=== PATIENT | female | born 1960 | race Caucasian/White ===

== ENCOUNTER 2016-11-11 10:21 | Emergency (ER) | payer SELFPAY ==
[~2016-11-11] VITALS: Ht 157.5 cm; Wt 111.2 kg
[~2016-11-11 10:21] MED LIST: CARI250T; CARI350T PO; DIAZ10TA; ENAL20TA; ENAL20TA PO; HYDR-3307; HYDR1POW19; HYDR25TA6 PO; OXYC-229; PENI500T; PRED20TA PO
[2016-11-11] MEDS ORDERED: ONDANSETRON 2MG/ML, 2ML IVPush ONE (11:30)
[2016-11-11] MEDS ORDERED: SODIUM CHLORIDE FLUSH 10ML SYR IVF ONE (11:30)
[2016-11-11] MEDS ORDERED: HYDROmorphone 1 MG/ML, 1ML IVPush PRN (11:30)
[2016-11-11 12:02] LABS: HEMOGLOBIN 15.8 g/dL (11.7-16.4)
[2016-11-11] MEDS ORDERED: ONDANSETRON 2MG/ML, 2ML ONE (12:03)
[2016-11-11] MEDS ORDERED: HYDROmorphone 1 MG/ML, 1ML ONE (12:03)
[2016-11-11 12:10] LABS: ASPARTATE AMINO TRANSFERASE 12 U/L (15-37); BLOOD UREA NITROGEN 14 mg/dL (7-18)
[2016-11-11 12:20] LABS: IS PT STATUS REG ER OR PRE ER? YES
[2016-11-11] MEDS ORDERED: HYDR25TA6 PO (12:47)
[2016-11-11] MEDS ORDERED: OMNIPAQUE 350 MG/ML, 100ML BOTTLE ONE (12:57)
[2016-11-11 13:55] VITALS: BP 137/60
== END 2016-11-11 13:57 | disposition home or self-care (01) ==
LOC: ED 12:57
DX: R10.12 Left upper quadrant pain (principal); R10.32 Left lower quadrant pain; M54.5 Low back pain; I10 Essential (primary) hypertension; J44.9 Chronic obstructive pulmonary disease, unspecified; Z90.49 Acquired absence of other specified parts of digestive tract; Z88.1 Allergy status to other antibiotic agents
CPT/HCPCS: 36415; 74022; 74177; 80053; 81003; 82550; 83605; 83690; 84484; 85025; 93005; 96374; 96375; 99285; J1170; J2405; Q9967

== ENCOUNTER 2017-01-14 11:00 | Emergency (ER) | payer SELFPAY ==
[~2017-01-14] VITALS: Ht 157.5 cm; Wt 110.0 kg
[2017-01-14] MEDS ORDERED: NEBI10TA3 PO (12:08)
[2017-01-14] MEDS ORDERED: SODIUM CHLORIDE FLUSH 10ML SYR IVF ONE (12:30)
[2017-01-14 13:44] LABS: BLOOD UREA NITROGEN 13 mg/dL (7-18)
[2017-01-14 14:05] VITALS: BP 144/86
== END 2017-01-14 14:43 | disposition home or self-care (01) ==
LOC: ED 14:10
DX: M25.461 Effusion, right knee (principal); R60.0 Localized edema; I10 Essential (primary) hypertension
CPT/HCPCS: 36415; 71010; 80048; 82040; 83880; 85025; 93005; 93970; 99285

== ENCOUNTER 2017-01-20 12:13 | Inpatient (IN) | payer SELFPAY ==
[~2017-01-20] VITALS: Ht 167.6 cm; Wt 110.4 kg
[~2017-01-20 12:13] MED LIST changes: -HYDR-3307; +HYDR-3307 PO; +NEBI10TA3 PO
[2017-01-20] MEDS ORDERED: SODIUM CHLORIDE FLUSH 10ML SYR IVF ONE (13:00)
[2017-01-20] MEDS ORDERED: FUROSEMIDE 40 MG/4 ML IV ONE (13:00)
[2017-01-20] MEDS ORDERED: FUROSEMIDE 40 MG/4 ML ONE (13:03)
[2017-01-20] MEDS ORDERED: ALBUTEROL/IPRATROPIUM 2.5MG/0.5MG, 3 ML ONE ×2 (13:21→13:41)
[2017-01-20 13:34] LABS: BLOOD UREA NITROGEN 11 mg/dL (7-18)
[2017-01-20 13:39] LABS: ASPARTATE AMINO TRANSFERASE 22 U/L (15-37); IS PT STATUS REG ER OR PRE ER? YES
[2017-01-20] MEDS: ALBUTEROL/IPRATROPIUM 2.5MG/0.5MG, 3 ML NPPB SCH ×2 (13:53→13:54)
[2017-01-20] MEDS: methylPREDNISolone SOD SUCC 125 MG/2 ML IVPush SCH ×2 (15:30→21:49)
[2017-01-20] MEDS ORDERED: ACETAMINOPHEN 325 MG TABLET PO PRN (15:30)
[2017-01-20] MEDS ORDERED: ENALAPRILAT 1.25 MG/ML, 2ML IVPush PRN (15:30)
[2017-01-20] MEDS ORDERED: ONDANSETRON 2MG/ML, 2ML ONE (15:51)
[2017-01-20] MEDS ORDERED: MORPHINE SULFATE 4 MG/ML, 1ML ONE (15:51)
[2017-01-20] MEDS: morphine SULFATE 10 MG/ML, 1ML IVPush PRN ×2 (15:53→21:59)
[2017-01-20] MEDS: ONDANSETRON 2MG/ML, 2ML IVPush PRN ×2 (15:54→22:13)
[2017-01-20] MEDS: CEFTRIAXONE 2 GM in SODIUM CHLORIDE 0.9% 50 ML IV SCH (16:00)
[2017-01-20] MEDS ORDERED: CEFTRIAXONE PMX 2GM/50ML 50 ML ONE (16:01)
[2017-01-20] MEDS ORDERED: HYDROcodone/APAP 5/325 TABLET ONE (17:00)
[2017-01-20] MEDS: CARISOPRODOL 350 MG TABLET PO SCH ×2 (17:00→22:32)
[2017-01-20] MEDS: HYDROcodone/APAP 5/325 TABLET PO PRN (17:15)
[2017-01-20] MEDS ORDERED: ALBUTEROL SULFATE 2.5 MG/3 ML NPPB PRN (17:30)
[2017-01-20 20:00] VITALS: BP 124/76
[2017-01-20] MEDS: ALBUTEROL SULFATE 2.5 MG/3 ML NPPB SCH (20:00)
[2017-01-20] MEDS: NICOTINE 21 MG/24 HR PATCH.TD24 TD SCH (21:40)
[2017-01-20] MEDS: ENOXAPARIN 40 MG/0.4 ML SQ SCH (21:49)
[2017-01-20] MEDS: TEMAZEPAM 15 MG CAPSULE PO PRN (21:59)
[2017-01-21] MEDS: HYDROcodone/APAP 5/325 TABLET PO PRN ×5 (01:10→21:33)
[2017-01-21] MEDS: TEMAZEPAM 15 MG CAPSULE PO PRN (01:10)
[2017-01-21 02:00] VITALS: BP 129/85
[2017-01-21] MEDS: methylPREDNISolone SOD SUCC 125 MG/2 ML IVPush SCH ×5 (03:53→21:16)
[2017-01-21 06:51] VITALS: BP 130/81
[2017-01-21] MEDS: ALBUTEROL SULFATE 2.5 MG/3 ML NPPB SCH ×4 (07:10→19:43)
[2017-01-21] MEDS: CARISOPRODOL 350 MG TABLET PO SCH ×3 (09:13→21:16)
[2017-01-21] MEDS: AZITHROMYCIN 500 MG TABLET PO SCH (09:13)
[2017-01-21] MEDS: morphine SULFATE 10 MG/ML, 1ML IVPush PRN ×4 (09:17→23:08)
[2017-01-21] MEDS: ONDANSETRON 2MG/ML, 2ML IVPush PRN ×2 (10:03→20:05)
[2017-01-21] MEDS ORDERED: DIAZEPAM 5 MG TABLET PO PRN ×2 (11:30→19:30)
[2017-01-21] MEDS ORDERED: DIAZEPAM 10 MG TABLET ONE (11:33)
[2017-01-21 13:50] VITALS: BP 146/75
[2017-01-21] MEDS: ENOXAPARIN 40 MG/0.4 ML SQ SCH (16:18)
[2017-01-21] MEDS: NICOTINE 21 MG/24 HR PATCH.TD24 TD SCH (16:18)
[2017-01-21] MEDS: CEFTRIAXONE 2 GM in SODIUM CHLORIDE 0.9% 50 ML IV SCH (16:18)
[2017-01-21 20:00] VITALS: BP 160/81
[2017-01-22 02:00] VITALS: BP 144/85
[2017-01-22] MEDS: methylPREDNISolone SOD SUCC 125 MG/2 ML IVPush SCH ×2 (03:32→10:41)
[2017-01-22] MEDS: morphine SULFATE 10 MG/ML, 1ML IVPush PRN (03:33)
[2017-01-22] MEDS: ONDANSETRON 2MG/ML, 2ML IVPush PRN (03:39)
[2017-01-22 06:01] LABS: BLOOD UREA NITROGEN 16 mg/dL (7-18)
[2017-01-22 06:42] VITALS: BP 147/75
[2017-01-22] MEDS: CARISOPRODOL 350 MG TABLET PO SCH (08:13)
[2017-01-22] MEDS: HYDROcodone/APAP 5/325 TABLET PO PRN (08:13)
[2017-01-22] MEDS: AZITHROMYCIN 500 MG TABLET PO SCH (08:13)
[2017-01-22] MEDS ORDERED: POTASSIUM CHLORIDE 20 MEQ TAB.ER.PRT PO SCH (09:00)
[2017-01-22] MEDS ORDERED: FUROSEMIDE 40 MG/4 ML IV SCH (09:00)
[2017-01-22] MEDS ORDERED: LISINOPRIL 20 MG TABLET PO SCH (10:00)
[2017-01-22] MEDS ORDERED: LISI-170 PO (23:24)
[2017-01-22] MEDS ORDERED: PRED20TA PO (23:24)
[2017-01-22] MEDS ORDERED: FURO-93 PO (23:24)
== END 2017-01-22 11:03 | disposition left against medical advice (07) | DRG 291 ==
LOC: ED 13:43 → SUATTDRO 14:42 → EDIP 15:38 → 4EST 18:21
PROVIDERS: ADMIT Hospitalist; ATTEND Hospitalist
DX: I11.0 Hypertensive heart disease with heart failure (principal); J96.00 Acute respiratory failure, unspecified whether with hypoxia or hypercapnia; J44.1 Chronic obstructive pulmonary disease with (acute) exacerbation; I25.2 Old myocardial infarction; Z86.73 Personal history of transient ischemic attack (TIA), and cerebral infarction without residual deficits; M06.9 Rheumatoid arthritis, unspecified; M79.7 Fibromyalgia; Z90.49 Acquired absence of other specified parts of digestive tract; F17.200 Nicotine dependence, unspecified, uncomplicated; I25.10 Atherosclerotic heart disease of native coronary artery without angina pectoris; M19.90 Unspecified osteoarthritis, unspecified site; M32.9 Systemic lupus erythematosus, unspecified; M71.20 Synovial cyst of popliteal space [Baker], unspecified knee; Z88.8 Allergy status to other drugs, medicaments and biological substances; Z80.9 Family history of malignant neoplasm, unspecified; Z82.49 Family history of ischemic heart disease and other diseases of the circulatory system; I50.31 Acute diastolic (congestive) heart failure
CPT/HCPCS: 36415; 71010; 80048; 80053; 80061; 83605; 83880; 84443; 84484; 85025; 93005; 93306; 94640; 96374; J0696; J1650; J1940; J2405; J7613; J7620; J2270; J2930; J7512

== ENCOUNTER 2017-01-22 21:26 | Inpatient (IN) | payer SELFPAY ==
[~2017-01-22] VITALS: Ht 157.5 cm; Wt 109.1 kg
[2017-01-22] MEDS ORDERED: methylPREDNISolone SOD SUCC 125 MG/2 ML IVP ONE (22:30)
[2017-01-22] MEDS ORDERED: SODIUM CHLORIDE FLUSH 10ML SYR IVF ONE (22:30)
[2017-01-22] MEDS ORDERED: methylPREDNISolone SOD SUCC 125 MG/2 ML ONE (22:35)
[2017-01-22 22:51] LABS: BLOOD UREA NITROGEN 27 mg/dL (7-18)
[2017-01-22 22:55] LABS: IS PT STATUS REG ER OR PRE ER? YES
[2017-01-22] MEDS ORDERED: KETOROLAC 30 MG/1 ML ONE (23:17)
[2017-01-22] MEDS ORDERED: PRED20TA PO (23:24)
[2017-01-22] MEDS ORDERED: FURO-93 PO (23:24)
[2017-01-22] MEDS ORDERED: LISI-170 PO (23:24)
[2017-01-22] MEDS ORDERED: KETOROLAC 30 MG/1 ML IVPush ONE (23:30)
[2017-01-23] MEDS: NICOTINE 14MG/24 HR PATCH.TD24 TD SCH
[2017-01-23] MEDS ORDERED: POLYETHYLENE GLYCOL 17 GM PACKET PO PRN
[2017-01-23] MEDS ORDERED: DOCUSATE 100 MG CAPSULE PO PRN
[2017-01-23] MEDS ORDERED: BISACODYL 10 MG SUPP PR PRN
[2017-01-23] MEDS ORDERED: ACETAMINOPHEN 325 MG TABLET PO PRN
[2017-01-23] MEDS ORDERED: ALBUTEROL SULFATE 2.5 MG/3 ML ONE (00:21)
[2017-01-23] MEDS ORDERED: ALBUTEROL/IPRATROPIUM 2.5MG/0.5MG, 3 ML NPPB PRN ×2 (00:30→01:30)
[2017-01-23 01:00] VITALS: BP 127/80
[2017-01-23] MEDS: methylPREDNISolone SOD SUCC 125 MG/2 ML IVPush SCH ×4 (01:19→20:02)
[2017-01-23] MEDS: ENOXAPARIN 40 MG/0.4 ML SQ SCH (01:19)
[2017-01-23] MEDS: morphine SULFATE 10 MG/ML, 1ML IVPush PRN ×6 (01:19→23:08)
[2017-01-23] MEDS: DOXYCYCLINE 100 MG in DEXTROSE 5% 250 ML IV SCH ×2 (01:20→12:19)
[2017-01-23] MEDS: CARISOPRODOL 350 MG TABLET PO SCH ×4 (01:20→20:02)
[2017-01-23] MEDS: ONDANSETRON 2MG/ML, 2ML IVPush PRN ×2 (01:27→20:02)
[2017-01-23 02:14] VITALS: BP 127/80
[2017-01-23 03:02] VITALS: BP 127/80
[2017-01-23] MEDS: HYDROcodone/APAP 10/325 MG TABLET PO PRN ×4 (05:54→22:05)
[2017-01-23 06:10] LABS: ASPARTATE AMINO TRANSFERASE 20 U/L (15-37); BLOOD UREA NITROGEN 32 mg/dL (7-18)
[2017-01-23 06:14] LABS: IS PT STATUS REG ER OR PRE ER? NO
[2017-01-23 07:43] VITALS: BP 134/83
[2017-01-23] MEDS: ALBUTEROL/IPRATROPIUM 2.5MG/0.5MG, 3 ML NPPB SCH ×8 (07:45→20:00)
[2017-01-23] MEDS: FUROSEMIDE 20 MG/2 ML IV SCH ×2 (08:15→16:36)
[2017-01-23] MEDS: SENNA/DOCUSATE TABLET PO SCH ×2 (08:16→08:17)
[2017-01-23] MEDS: LISINOPRIL 20 MG TABLET PO SCH (08:16)
[2017-01-23 12:42] LABS: IS PT STATUS REG ER OR PRE ER? NO
[2017-01-23 14:36] VITALS: BP 122/79
[2017-01-23 16:27] LABS: IS PT STATUS REG ER OR PRE ER? NO
[2017-01-23 19:19] VITALS: BP 133/80
[2017-01-24] MEDS: NICOTINE 14MG/24 HR PATCH.TD24 TD SCH
[2017-01-24] MEDS: ENOXAPARIN 40 MG/0.4 ML SQ SCH (00:18)
[2017-01-24 01:27] VITALS: BP 125/74
[2017-01-24] MEDS: methylPREDNISolone SOD SUCC 125 MG/2 ML IVPush SCH ×2 (02:10→08:46)
[2017-01-24] MEDS: ONDANSETRON 2MG/ML, 2ML IVPush PRN ×2 (02:10→10:59)
[2017-01-24] MEDS: morphine SULFATE 10 MG/ML, 1ML IVPush PRN ×3 (02:10→10:05)
[2017-01-24] MEDS: DOXYCYCLINE 100 MG in DEXTROSE 5% 250 ML IV SCH (02:10)
[2017-01-24] MEDS: HYDROcodone/APAP 10/325 MG TABLET PO PRN ×2 (02:49→07:34)
[2017-01-24] MEDS: ALBUTEROL/IPRATROPIUM 2.5MG/0.5MG, 3 ML NPPB SCH (07:00)
[2017-01-24 07:15] VITALS: BP 147/86
[2017-01-24] MEDS: FUROSEMIDE 20 MG/2 ML IV SCH (08:46)
[2017-01-24] MEDS: CARISOPRODOL 350 MG TABLET PO SCH (08:46)
[2017-01-24] MEDS: LISINOPRIL 20 MG TABLET PO SCH (08:46)
[2017-01-24] MEDS: SENNA/DOCUSATE TABLET PO SCH (09:00)
[2017-01-24] MEDS ORDERED: DIAZEPAM 5 MG TABLET PO PRN (10:30)
== END 2017-01-24 12:00 | disposition left against medical advice (07) | DRG 291 ==
LOC: ED 21:52 → EDIP 23:25 → SUATTDRO 23:30 → 4EST 01-23 00:38
PROVIDERS: ADMIT Internal Medicine; ATTEND Internal Medicine
DX: I11.0 Hypertensive heart disease with heart failure (principal); J96.00 Acute respiratory failure, unspecified whether with hypoxia or hypercapnia; J44.1 Chronic obstructive pulmonary disease with (acute) exacerbation; J44.0 Chronic obstructive pulmonary disease with (acute) lower respiratory infection; Z68.41 Body mass index [BMI] 40.0-44.9, adult; I50.33 Acute on chronic diastolic (congestive) heart failure; E66.01 Morbid (severe) obesity due to excess calories; F41.9 Anxiety disorder, unspecified; I25.10 Atherosclerotic heart disease of native coronary artery without angina pectoris; I27.2 Other secondary pulmonary hypertension; J20.9 Acute bronchitis, unspecified; M06.9 Rheumatoid arthritis, unspecified; M32.9 Systemic lupus erythematosus, unspecified; M79.7 Fibromyalgia; F17.210 Nicotine dependence, cigarettes, uncomplicated; I34.0 Nonrheumatic mitral (valve) insufficiency; I07.1 Rheumatic tricuspid insufficiency; M71.20 Synovial cyst of popliteal space [Baker], unspecified knee; M25.461 Effusion, right knee; Z53.21 Procedure and treatment not carried out due to patient leaving prior to being seen by health care provider; Z86.73 Personal history of transient ischemic attack (TIA), and cerebral infarction without residual deficits; Z90.49 Acquired absence of other specified parts of digestive tract; Z90.89 Acquired absence of other organs; Z82.49 Family history of ischemic heart disease and other diseases of the circulatory system; Z80.9 Family history of malignant neoplasm, unspecified; Z90.721 Acquired absence of ovaries, unilateral; Z79.52 Long term (current) use of systemic steroids; Z79.899 Other long term (current) drug therapy; Z88.1 Allergy status to other antibiotic agents; Z88.8 Allergy status to other drugs, medicaments and biological substances
CPT/HCPCS: 36415; 71010; 80048; 80053; 82040; 83880; 84484; 85025; 93005; 94640; 96374; 96375; J1650; J1885; J2405; J7060; J7620; J1940; J2270; J2930

== ENCOUNTER 2017-01-26 15:25 | Inpatient (IN) | payer SELFPAY ==
[~2017-01-26] VITALS: Ht 157.5 cm; Wt 108.5 kg
[~2017-01-26 15:25] MED LIST changes: +FURO-93 PO; +LISI-170 PO
[2017-01-26] MEDS ORDERED: SODIUM CHLORIDE FLUSH 10ML SYR IVF ONE (15:30)
[2017-01-26] MEDS ORDERED: ALBUTEROL/IPRATROPIUM 2.5MG/0.5MG, 3 ML NPPB ONE (16:00)
[2017-01-26] MEDS ORDERED: ALBUTEROL/IPRATROPIUM 2.5MG/0.5MG, 3 ML ONE (16:14)
[2017-01-26 16:18] LABS: BLOOD UREA NITROGEN 22 mg/dL (7-18)
[2017-01-26] MEDS ORDERED: SODIUM CHLORIDE FLUSH 10ML SYR IVF PRN (17:30)
[2017-01-26] MEDS ORDERED: ACETAMINOPHEN 325 MG TABLET PO PRN (19:00)
[2017-01-26] MEDS ORDERED: DOCUSATE 100 MG CAPSULE PO PRN (19:00)
[2017-01-26] MEDS ORDERED: POLYETHYLENE GLYCOL 17 GM PACKET PO PRN (19:00)
[2017-01-26] MEDS ORDERED: BISACODYL 10 MG SUPP PR PRN (19:00)
[2017-01-26] MEDS ORDERED: LABETALOL 5MG/ML 40ML VIAL IVPush PRN (19:00)
[2017-01-26] MEDS ORDERED: HYDROcodone/APAP 10/325 MG TABLET PO PRN (19:00)
[2017-01-26] MEDS: ALBUTEROL/IPRATROPIUM 2.5MG/0.5MG, 3 ML NPPB SCH (20:00)
[2017-01-26 20:45] VITALS: BP 159/94
[2017-01-26] MEDS: HEPARIN 5,000 UNITS/ML, 1ML SQ SCH (21:42)
[2017-01-26] MEDS: LORazepam 2 MG/ML, 1ML IVPush PRN (21:42)
[2017-01-26] MEDS: DOXYCYCLINE 100MG TABLET PO SCH (21:42)
[2017-01-26] MEDS: HYDROcodone/APAP 10/325 MG TABLET PO PRN (21:42)
[2017-01-26] MEDS ORDERED: ALBUTEROL SULFATE 2.5 MG/3 ML NPPB PRN (22:00)
[2017-01-27 04:07] VITALS: BP 146/82
[2017-01-27] MEDS: HYDROcodone/APAP 10/325 MG TABLET PO PRN ×2 (04:38→11:41)
[2017-01-27] MEDS: HEPARIN 5,000 UNITS/ML, 1ML SQ SCH ×3 (05:30→13:30)
[2017-01-27 05:33] LABS: BLOOD UREA NITROGEN 19 mg/dL (7-18)
[2017-01-27 05:44] LABS: ASPARTATE AMINO TRANSFERASE 12 U/L (15-37)
[2017-01-27] MEDS ORDERED: ASPIRIN 325 MG TABLET EC PO SCH (06:00)
[2017-01-27 06:37] VITALS: BP 144/98
[2017-01-27] MEDS: ALBUTEROL/IPRATROPIUM 2.5MG/0.5MG, 3 ML NPPB SCH ×2 (07:00→09:39)
[2017-01-27] MEDS ORDERED: FLUTICASONE/VILANTEROL 100-25MCG/INH INH SCH (09:00)
[2017-01-27] MEDS ORDERED: FUROSEMIDE 20 MG TABLET PO SCH (09:00)
[2017-01-27] MEDS ORDERED: LISINOPRIL 20 MG TABLET PO SCH (09:00)
[2017-01-27] MEDS: DOXYCYCLINE 100MG TABLET PO SCH (09:51)
[2017-01-27] MEDS: LORazepam 2 MG/ML, 1ML IVPush PRN (10:02)
[2017-01-27 12:46] VITALS: BP 106/69
[2017-01-27] MEDS ORDERED: PRED20TA PO (14:19)
== END 2017-01-27 15:00 | disposition home or self-care (01) | DRG 190 ==
LOC: ED 17:29 → EDIP 17:30 → ED 17:35 → 4NOR 20:30 → DCLOUNGE 01-27 14:42
DX: J44.0 Chronic obstructive pulmonary disease with (acute) lower respiratory infection (principal); I50.33 Acute on chronic diastolic (congestive) heart failure; Z68.41 Body mass index [BMI] 40.0-44.9, adult; I11.0 Hypertensive heart disease with heart failure; J44.1 Chronic obstructive pulmonary disease with (acute) exacerbation; I25.10 Atherosclerotic heart disease of native coronary artery without angina pectoris; I27.2 Other secondary pulmonary hypertension; F17.210 Nicotine dependence, cigarettes, uncomplicated; F41.9 Anxiety disorder, unspecified; M32.9 Systemic lupus erythematosus, unspecified; E66.01 Morbid (severe) obesity due to excess calories; Z96.651 Presence of right artificial knee joint; J20.9 Acute bronchitis, unspecified; M79.7 Fibromyalgia; I07.1 Rheumatic tricuspid insufficiency; I34.0 Nonrheumatic mitral (valve) insufficiency; Z82.49 Family history of ischemic heart disease and other diseases of the circulatory system; Z80.9 Family history of malignant neoplasm, unspecified; Z88.1 Allergy status to other antibiotic agents; Z88.8 Allergy status to other drugs, medicaments and biological substances; Z86.73 Personal history of transient ischemic attack (TIA), and cerebral infarction without residual deficits; Z90.49 Acquired absence of other specified parts of digestive tract; Z90.89 Acquired absence of other organs; Z90.721 Acquired absence of ovaries, unilateral
CPT/HCPCS: 36415; 71010; 80048; 80053; 81003; 82040; 83735; 83880; 84100; 84443; 85025; 87040; 93005; 94640; 99285; J1644; J7620; J2060; J7512

== ENCOUNTER 2017-01-29 09:56 | Inpatient (IN) | payer SELFPAY ==
[~2017-01-29] VITALS: Ht 157.5 cm; Wt 110.7 kg
[2017-01-29] MEDS ORDERED: LORazepam 2 MG/ML, 1ML IVP ONE (10:30)
[2017-01-29] MEDS ORDERED: methylPREDNISolone SOD SUCC 125 MG/2 ML IVP ONE (10:30)
[2017-01-29] MEDS ORDERED: SODIUM CHLORIDE FLUSH 10ML SYR IVF ONE (10:30)
[2017-01-29] MEDS ORDERED: ALBUTEROL/IPRATROPIUM 2.5MG/0.5MG, 3 ML ONE (10:43)
[2017-01-29] MEDS ORDERED: methylPREDNISolone SOD SUCC 125 MG/2 ML ONE (10:55)
[2017-01-29] MEDS ORDERED: LORazepam 2 MG/ML, 1ML ONE (10:56)
[2017-01-29 11:05] LABS: ASPARTATE AMINO TRANSFERASE 12 U/L (15-37); BLOOD UREA NITROGEN 19 mg/dL (7-18)
[2017-01-29 11:10] LABS: IS PT STATUS REG ER OR PRE ER? YES
[2017-01-29] MEDS ORDERED: HYDROcodone/APAP 5/325 TABLET ONE (11:56)
[2017-01-29] MEDS ORDERED: HYDROcodone/APAP 5/325 TABLET PO ONE (12:00)
[2017-01-29 12:52] VITALS: BP 156/88
[2017-01-29] MEDS ORDERED: OXYcodone/APAP 5/325MG TABLET PO ONE (14:00)
[2017-01-29] MEDS: ALBUTEROL/IPRATROPIUM 2.5MG/0.5MG, 3 ML NPPB SCH ×2 (14:41→20:30)
[2017-01-29] MEDS ORDERED: ONDANSETRON 2MG/ML, 2ML IVPush PRN (16:00)
[2017-01-29] MEDS ORDERED: KETOROLAC 30 MG/1 ML IVPush PRN (16:00)
[2017-01-29] MEDS ORDERED: BISACODYL 10 MG SUPP PR PRN (16:00)
[2017-01-29] MEDS ORDERED: hydrALAzine 20 MG/ML, 1ML IVPush PRN (16:00)
[2017-01-29] MEDS ORDERED: ENOXAPARIN 40 MG/0.4 ML SQ SCH (16:00)
[2017-01-29] MEDS ORDERED: DOCUSATE 100 MG CAPSULE PO PRN (16:00)
[2017-01-29] MEDS ORDERED: ALBUTEROL/IPRATROPIUM 2.5MG/0.5MG, 3 ML NPPB SCH (16:00)
[2017-01-29] MEDS ORDERED: POLYETHYLENE GLYCOL 17 GM PACKET PO PRN (16:00)
[2017-01-29] MEDS ORDERED: FUROSEMIDE 40 MG/4 ML IV ONE (16:00)
[2017-01-29] MEDS ORDERED: ACETAMINOPHEN 325 MG TABLET PO PRN (16:00)
[2017-01-29] MEDS ORDERED: ENALAPRILAT 1.25 MG/ML, 2ML IVPush PRN (16:00)
[2017-01-29] MEDS ORDERED: methylPREDNISolone SOD SUCC 125 MG/2 ML IVPush SCH (16:30)
[2017-01-29 16:32] VITALS: BP 165/97
[2017-01-29] MEDS ORDERED: FUROSEMIDE 20 MG/2 ML IV SCH (17:00)
[2017-01-29] MEDS ORDERED: CEFTRIAXONE PMX 1GM/50ML 50 ML IV SCH (17:00)
[2017-01-29] MEDS ORDERED: LORazepam 1MG TABLET PO PRN (17:30)
[2017-01-29] MEDS ORDERED: DOXYCYCLINE 100 MG in DEXTROSE 5% 250 ML IV SCH (18:00)
[2017-01-29 20:46] VITALS: BP 176/110
[2017-01-30] MEDS ORDERED: LISINOPRIL 20 MG TABLET PO SCH (09:00)
== END 2017-01-30 04:32 | disposition left against medical advice (07) | DRG 291 ==
LOC: ED 11:22 → EDIP 11:47 → 4EST 12:41
PROVIDERS: ADMIT Internal Medicine; ATTEND Internal Medicine
DX: I11.0 Hypertensive heart disease with heart failure (principal); J96.00 Acute respiratory failure, unspecified whether with hypoxia or hypercapnia; J44.1 Chronic obstructive pulmonary disease with (acute) exacerbation; R65.10 Systemic inflammatory response syndrome (SIRS) of non-infectious origin without acute organ dysfunction; J44.0 Chronic obstructive pulmonary disease with (acute) lower respiratory infection; I50.33 Acute on chronic diastolic (congestive) heart failure; I25.10 Atherosclerotic heart disease of native coronary artery without angina pectoris; J20.9 Acute bronchitis, unspecified; I08.1 Rheumatic disorders of both mitral and tricuspid valves; I27.2 Other secondary pulmonary hypertension; F17.210 Nicotine dependence, cigarettes, uncomplicated; M06.9 Rheumatoid arthritis, unspecified; M79.7 Fibromyalgia; M32.9 Systemic lupus erythematosus, unspecified; E66.01 Morbid (severe) obesity due to excess calories; F41.9 Anxiety disorder, unspecified; Z53.21 Procedure and treatment not carried out due to patient leaving prior to being seen by health care provider; Z91.14 Patient's other noncompliance with medication regimen; Z86.73 Personal history of transient ischemic attack (TIA), and cerebral infarction without residual deficits; Z90.49 Acquired absence of other specified parts of digestive tract; Z90.89 Acquired absence of other organs; Z90.721 Acquired absence of ovaries, unilateral; Z79.899 Other long term (current) drug therapy; Z88.8 Allergy status to other drugs, medicaments and biological substances; Z82.49 Family history of ischemic heart disease and other diseases of the circulatory system; Z80.9 Family history of malignant neoplasm, unspecified; Z83.3 Family history of diabetes mellitus
CPT/HCPCS: 36415; 71010; 80053; 83036; 83605; 83735; 83880; 84439; 84443; 84484; 85025; 93005; 94640; 96374; 96375; J0696; J1650; J1885; J1940; J7060; J7620; J0360; J2060; J2930

== ENCOUNTER 2017-02-01 11:35 | Inpatient (IN) | payer SELFPAY ==
[~2017-02-01] VITALS: Ht 157.5 cm; Wt 115.0 kg
[2017-02-01] MEDS ORDERED: ALBUTEROL SULFATE 2.5 MG/3 ML NPPB ONE (12:00)
[2017-02-01] MEDS ORDERED: SODIUM CHLORIDE FLUSH 10ML SYR IVF ONE (12:00)
[2017-02-01] MEDS ORDERED: ASPIRIN 81 MG TABLET CHEW PO ONE (12:00)
[2017-02-01] MEDS ORDERED: ALBUTEROL/IPRATROPIUM 2.5MG/0.5MG, 3 ML ONE ×2 (12:14→14:20)
[2017-02-01] MEDS ORDERED: ASPIRIN 81 MG TABLET CHEW ONE (12:24)
[2017-02-01] MEDS ORDERED: ALBUTEROL/IPRATROPIUM 2.5MG/0.5MG, 3 ML NPPB ONE (12:30)
[2017-02-01 12:34] LABS: ASPARTATE AMINO TRANSFERASE 13 U/L (15-37); BLOOD UREA NITROGEN 27 mg/dL (7-18)
[2017-02-01 12:47] LABS: IS PT STATUS REG ER OR PRE ER? YES
[2017-02-01] MEDS ORDERED: SODIUM CHLORIDE FLUSH 10ML SYR IVF PRN (13:30)
[2017-02-01] MEDS ORDERED: BISACODYL 10 MG SUPP PR PRN (14:00)
[2017-02-01] MEDS ORDERED: ACETAMINOPHEN 325 MG TABLET PO PRN (14:00)
[2017-02-01] MEDS ORDERED: ONDANSETRON 2MG/ML, 2ML IVPush PRN (14:00)
[2017-02-01] MEDS ORDERED: ENALAPRILAT 1.25 MG/ML, 2ML IVPush PRN (14:00)
[2017-02-01] MEDS ORDERED: FUROSEMIDE 40 MG/4 ML IV ONE (14:00)
[2017-02-01] MEDS ORDERED: POLYETHYLENE GLYCOL 17 GM PACKET PO PRN (14:00)
[2017-02-01] MEDS ORDERED: DOCUSATE 100 MG CAPSULE PO PRN (14:00)
[2017-02-01] MEDS: ALBUTEROL/IPRATROPIUM 2.5MG/0.5MG, 3 ML NPPB SCH ×2 (14:23→19:30)
[2017-02-01] MEDS ORDERED: CEFTRIAXONE PMX 1GM/50ML 50 ML IV SCH (14:30)
[2017-02-01] MEDS ORDERED: FUROSEMIDE 20 MG/2 ML ONE ×2 (14:41→14:46)
[2017-02-01] MEDS ORDERED: CEFTRIAXONE PMX 1GM/50ML 50 ML ONE (14:41)
[2017-02-01] MEDS ORDERED: ENOXAPARIN 40 MG/0.4 ML ONE (14:42)
[2017-02-01] MEDS ORDERED: methylPREDNISolone SOD SUCC 125 MG/2 ML ONE (14:43)
[2017-02-01] MEDS ORDERED: HYDROcodone/APAP 10/325 MG TABLET ONE (14:43)
[2017-02-01] MEDS: HYDROcodone/APAP 10/325 MG TABLET PO PRN ×2 (14:49→21:58)
[2017-02-01] MEDS: ENOXAPARIN 40 MG/0.4 ML SQ SCH (14:50)
[2017-02-01] MEDS: methylPREDNISolone SOD SUCC 125 MG/2 ML IVPush SCH ×2 (14:51→21:04)
[2017-02-01] MEDS ORDERED: POTASSIUM CHLORIDE 20 MEQ TAB.ER.PRT ONE (17:33)
[2017-02-01] MEDS: POTASSIUM CHLORIDE 20 MEQ TAB.ER.PRT PO SCH (17:52)
[2017-02-01] MEDS: CARISOPRODOL 350 MG TABLET PO SCH (17:52)
[2017-02-01 21:00] VITALS: BP 151/75
[2017-02-01] MEDS: SODIUM CHLORIDE FLUSH 10ML SYR IVF SCH (21:04)
[2017-02-01] MEDS: DOXYCYCLINE 100 MG in DEXTROSE 5% 250 ML IV SCH (21:04)
[2017-02-02] MEDS: CARISOPRODOL 350 MG TABLET PO SCH ×4 (00:05→22:38)
[2017-02-02 00:31] VITALS: BP 150/86
[2017-02-02] MEDS: HYDROcodone/APAP 10/325 MG TABLET PO PRN ×4 (05:34→22:38)
[2017-02-02] MEDS: methylPREDNISolone SOD SUCC 125 MG/2 ML IVPush SCH (05:35)
[2017-02-02 06:32] LABS: BLOOD UREA NITROGEN 19 mg/dL (7-18)
[2017-02-02] MEDS: ALBUTEROL/IPRATROPIUM 2.5MG/0.5MG, 3 ML NPPB SCH ×4 (07:15→19:54)
[2017-02-02] MEDS: FUROSEMIDE 40 MG/4 ML IV SCH (09:00)
[2017-02-02] MEDS ORDERED: CEFTRIAXONE PMX 2GM/50ML 50 ML IV SCH (09:00)
[2017-02-02] MEDS: POTASSIUM CHLORIDE 20 MEQ TAB.ER.PRT PO SCH ×2 (09:00→17:36)
[2017-02-02] MEDS: SODIUM CHLORIDE FLUSH 10ML SYR IVF SCH ×2 (09:00→19:59)
[2017-02-02] MEDS: LISINOPRIL 20 MG TABLET PO SCH (09:00)
[2017-02-02] MEDS: DOXYCYCLINE 100 MG in DEXTROSE 5% 250 ML IV SCH ×2 (09:01→19:59)
[2017-02-02 09:18] VITALS: BP 153/93
[2017-02-02] MEDS: predniSONE 50MG TABLET PO SCH (11:28)
[2017-02-02] MEDS: ENOXAPARIN 40 MG/0.4 ML SQ SCH (12:41)
[2017-02-02 13:03] VITALS: BP 136/99
[2017-02-02] MEDS: KETOROLAC 30 MG/1 ML IM PRN ×2 (15:11→21:23)
[2017-02-02 20:12] VITALS: BP 148/84
[2017-02-03 01:21] VITALS: BP 120/76
[2017-02-03] MEDS: KETOROLAC 30 MG/1 ML IM PRN (03:45)
[2017-02-03 05:34] LABS: BLOOD UREA NITROGEN 38 mg/dL (7-18)
[2017-02-03] MEDS: HYDROcodone/APAP 10/325 MG TABLET PO PRN ×2 (06:01→09:57)
[2017-02-03] MEDS: ALBUTEROL/IPRATROPIUM 2.5MG/0.5MG, 3 ML NPPB SCH (06:22)
[2017-02-03] MEDS ORDERED: ALBUTEROL/IPRATROPIUM 2.5MG/0.5MG, 3 ML NPPB PRN (08:00)
[2017-02-03 08:58] VITALS: BP 141/71
[2017-02-03] MEDS: LISINOPRIL 20 MG TABLET PO SCH (09:20)
[2017-02-03] MEDS: POTASSIUM CHLORIDE 20 MEQ TAB.ER.PRT PO SCH (09:20)
[2017-02-03] MEDS: CARISOPRODOL 350 MG TABLET PO SCH (09:20)
[2017-02-03] MEDS: predniSONE 50MG TABLET PO SCH (09:21)
[2017-02-03] MEDS: SODIUM CHLORIDE FLUSH 10ML SYR IVF SCH (09:21)
[2017-02-03] MEDS: FUROSEMIDE 40 MG/4 ML IV SCH (10:17)
== END 2017-02-03 11:26 | disposition home or self-care (01) | DRG 291 ==
LOC: ED 13:16 → EDIP 13:17 → ED 13:28 → 5SO 17:24 → DCLOUNGE 02-03 11:02
PROVIDERS: ADMIT Hospitalist; ATTEND Hospitalist
DX: I11.0 Hypertensive heart disease with heart failure (principal); J96.00 Acute respiratory failure, unspecified whether with hypoxia or hypercapnia; J44.1 Chronic obstructive pulmonary disease with (acute) exacerbation; I38 Endocarditis, valve unspecified; Z68.42 Body mass index [BMI] 45.0-49.9, adult; I50.33 Acute on chronic diastolic (congestive) heart failure; I25.10 Atherosclerotic heart disease of native coronary artery without angina pectoris; D72.829 Elevated white blood cell count, unspecified; M06.9 Rheumatoid arthritis, unspecified; E66.01 Morbid (severe) obesity due to excess calories; F41.9 Anxiety disorder, unspecified; I27.2 Other secondary pulmonary hypertension; F17.210 Nicotine dependence, cigarettes, uncomplicated; F12.90 Cannabis use, unspecified, uncomplicated; M79.7 Fibromyalgia; M32.9 Systemic lupus erythematosus, unspecified; Z90.49 Acquired absence of other specified parts of digestive tract; Z86.73 Personal history of transient ischemic attack (TIA), and cerebral infarction without residual deficits; Z90.721 Acquired absence of ovaries, unilateral; Z88.1 Allergy status to other antibiotic agents; Z88.8 Allergy status to other drugs, medicaments and biological substances; Z82.49 Family history of ischemic heart disease and other diseases of the circulatory system; Z83.3 Family history of diabetes mellitus
CPT/HCPCS: 36415; 71010; 80048; 80053; 83036; 83880; 84484; 85025; 87205; 93005; 94640; 96374; 96375; J0696; J1650; J1885; J1940; J7060; J7620; J2930; J7512

== ENCOUNTER 2017-02-07 07:14 | Emergency (ER) | payer SELFPAY ==
[~2017-02-07] VITALS: Ht 157.5 cm; Wt 110.9 kg
[2017-02-07 07:24] VITALS: BP 163/106
[2017-02-07] MEDS ORDERED: HYDROcodone/APAP 5/325 TABLET PO ONE (08:00)
[2017-02-07] MEDS ORDERED: ASPIRIN 81 MG TABLET CHEW PO ONE (08:00)
[2017-02-07] MEDS ORDERED: ASPIRIN 81 MG TABLET CHEW ONE (08:05)
[2017-02-07] MEDS ORDERED: HYDROcodone/APAP 5/325 TABLET ONE (08:05)
[2017-02-07 08:35] LABS: ASPARTATE AMINO TRANSFERASE 9 U/L (15-37); BLOOD UREA NITROGEN 16 mg/dL (7-18)
[2017-02-07 08:40] LABS: IS PT STATUS REG ER OR PRE ER? YES
[2017-02-07] MEDS ORDERED: ALBUTEROL/IPRATROPIUM 2.5MG/0.5MG, 3 ML NPPB ONE (09:00)
[2017-02-07] MEDS ORDERED: ALBUTEROL/IPRATROPIUM 2.5MG/0.5MG, 3 ML ONE (09:08)
== END 2017-02-07 10:49 | disposition home or self-care (01) ==
LOC: ED 08:40
DX: I50.23 Acute on chronic systolic (congestive) heart failure (principal); I11.0 Hypertensive heart disease with heart failure; R60.0 Localized edema; F17.210 Nicotine dependence, cigarettes, uncomplicated; J44.9 Chronic obstructive pulmonary disease, unspecified; M06.9 Rheumatoid arthritis, unspecified; Z90.49 Acquired absence of other specified parts of digestive tract
CPT/HCPCS: 36415; 71010; 80053; 83880; 84484; 85025; 93005; 94640

== ENCOUNTER 2017-08-01 11:18 | Emergency (ER) | payer SELFPAY ==
[~2017-08-01] VITALS: Ht 157.5 cm; Wt 110.0 kg
[~2017-08-01 11:18] MED LIST changes: -OXYC-229; +OXYC-307
[2017-08-01] MEDS ORDERED: PLEASE ENTER HEIGHT AND WEIGHT MC SCH (11:43)
[2017-08-01] MEDS ORDERED: MORPHINE SULFATE 4 MG/ML, 1ML IVPush PRN (12:00)
[2017-08-01] MEDS ORDERED: ONDANSETRON 2MG/ML, 2ML IVPush ONE (12:00)
[2017-08-01] MEDS ORDERED: MORPHINE SULFATE 4 MG/ML, 1ML ONE (12:01)
[2017-08-01] MEDS ORDERED: ONDANSETRON 2MG/ML, 2ML ONE (12:01)
[2017-08-01 12:21] LABS: BASOPHILS % (AUTO) 1 % (0-1); EOSINOPHILS # (AUTO) 0.17 x10^3/uL (0-0.4); EOSINOPHILS % (AUTO) 2 % (1-7); LYMPHOCYTES # (AUTO) 2.24 x10^3/uL (1-3.4); LYMPHOCYTES % (AUTO) 25 % (22-44); MD NO; MEAN CORPUSCULAR HEMOGLOBIN 29.9 pg (27.0-34.8); MEAN CORPUSCULAR VOLUME 87.9 fL (80-100); MEAN PLATELET VOLUME 7.8 fL (7.4-10.4); MONOCYTES # (AUTO) 0.35 x10^3/uL (0.2-0.8); MONOCYTES % (AUTO) 4 % (2-9); NEUTROPHILS # (AUTO) 6.15 x10^3/uL (1.8-6.8); NEUTROPHILS % (AUTO) 68 % (42-75); PLATELET COUNT 339 x10^3/uL (130-400); RED BLOOD COUNT 5.38 x10^6/uL (3.82-5.3); RED CELL DISTRIBUTION WIDTH 13.8 % (9.6-15.2)
[2017-08-01 12:33] LABS: ALANINE AMINOTRANSFERASE 24 U/L (12-78); ANION GAP 8 mmol/L (5-15); CALCIUM 9.1 mg/dL (8.5-10.1); CHLORIDE 106 mmol/L (98-107)
[2017-08-01 12:36] LABS: ALKALINE PHOSPHATASE 143 U/L (45-117); BILIRUBIN,TOTAL 0.3 mg/dL (0.2-1.0); CREATININE 0.65 mg/dL (0.55-1.02); TOTAL PROTEIN 8.1 g/dL (6.4-8.2)
[2017-08-01 13:09] LABS: HCT (SEDRATE) 47.3 % (34.6-47.8)
[2017-08-01 13:36] VITALS: BP 116/75
[2017-08-01] MEDS ORDERED: HYDROmorphone 2 MG/ML, 1ML ONE (13:50)
[2017-08-01] MEDS ORDERED: HYDROmorphone 1 MG/ML, 1ML IVPush PRN (14:30)
== END 2017-08-01 14:48 | disposition home or self-care (01) ==
LOC: ED 14:42
DX: M25.561 Pain in right knee (principal); R51 Headache; B02.9 Zoster without complications; F17.200 Nicotine dependence, unspecified, uncomplicated; J44.9 Chronic obstructive pulmonary disease, unspecified; I25.2 Old myocardial infarction; Z90.49 Acquired absence of other specified parts of digestive tract; Z86.73 Personal history of transient ischemic attack (TIA), and cerebral infarction without residual deficits
CPT/HCPCS: 36415; 73564; 80053; 85025; 85651; 93971; 96374; 96375; 99285; J1170; J2405

== ENCOUNTER 2017-08-10 11:28 | Emergency (ER) | payer OTHER ==
[~2017-08-10] VITALS: Ht 157.5 cm; Wt 115.0 kg
[2017-08-10 12:01] LABS: BASOPHILS # (AUTO) 0.05 x10^3/uL (0-0.1); BASOPHILS % (AUTO) 1 % (0-1); EOSINOPHILS # (AUTO) 0.22 x10^3/uL (0-0.4); EOSINOPHILS % (AUTO) 3 % (1-7); LYMPHOCYTES # (AUTO) 1.78 x10^3/uL (1-3.4); LYMPHOCYTES % (AUTO) 23 % (22-44); MD NO; MEAN CORPUSCULAR HGB CONC 33.8 g/dL (32.4-35.8); MEAN CORPUSCULAR VOLUME 88.8 fL (80-100); MEAN PLATELET VOLUME 7.7 fL (7.4-10.4); MONOCYTES # (AUTO) 0.43 x10^3/uL (0.2-0.8); MONOCYTES % (AUTO) 6 % (2-9); NEUTROPHILS # (AUTO) 5.22 x10^3/uL (1.8-6.8); NEUTROPHILS % (AUTO) 68 % (42-75); PLATELET COUNT 322 x10^3/uL (130-400); RED CELL DISTRIBUTION WIDTH 13.6 % (9.6-15.2)
[2017-08-10 12:13] LABS: ALANINE AMINOTRANSFERASE 21 U/L (12-78); ALBUMIN 3.7 g/dL (3.4-5.0); ANION GAP 9 mmol/L (5-15); CALCIUM 8.8 mg/dL (8.5-10.1); CHLORIDE 105 mmol/L (98-107); CREATININE 0.83 mg/dL (0.55-1.02)
[2017-08-10 12:15] LABS: ALKALINE PHOSPHATASE 131 U/L (45-117); BILIRUBIN,TOTAL 0.3 mg/dL (0.2-1.0); TOTAL PROTEIN 7.7 g/dL (6.4-8.2)
[2017-08-10 13:44] LABS: MICROSCOPIC NOT IND
[2017-08-10 13:45] LABS: CULTURE INDICATED? NO
[2017-08-10] MEDS ORDERED: ALBUTEROL/IPRATROPIUM 2.5MG/0.5MG, 3 ML ONE (13:53)
[2017-08-10] MEDS ORDERED: ALBUTEROL/IPRATROPIUM 2.5MG/0.5MG, 3 ML NPPB ONE (14:00)
[2017-08-10] MEDS ORDERED: HYDROcodone/APAP 5/325 TABLET PO ONE (14:30)
[2017-08-10] MEDS ORDERED: HYDROcodone/APAP 5/325 TABLET ONE (14:36)
[2017-08-10 14:41] VITALS: BP 163/65
== END 2017-08-10 14:44 | disposition home or self-care (01) ==
LOC: ED 13:41
DX: J44.1 Chronic obstructive pulmonary disease with (acute) exacerbation (principal); B02.9 Zoster without complications; I11.0 Hypertensive heart disease with heart failure; I50.9 Heart failure, unspecified; I25.10 Atherosclerotic heart disease of native coronary artery without angina pectoris; F17.200 Nicotine dependence, unspecified, uncomplicated; E66.9 Obesity, unspecified; M06.9 Rheumatoid arthritis, unspecified; Z90.49 Acquired absence of other specified parts of digestive tract
CPT/HCPCS: 36415; 71045; 80053; 81003; 85025; 94640; 99285; J7620

== ENCOUNTER 2017-08-24 09:41 | Emergency (ER) | payer OTHER ==
[~2017-08-24] VITALS: Ht 157.5 cm; Wt 111.3 kg
[2017-08-24] MEDS ORDERED: LIDOCAINE 1%, 20ML INFIL ONE (10:30)
[2017-08-24] MEDS ORDERED: TRIAMCINOLONE ACETONIDE 40 MG/ML, 1ML IM ONE (10:30)
[2017-08-24 10:54] LABS: BASOPHILS # (AUTO) 0.09 x10^3/uL (0-0.1); BASOPHILS % (AUTO) 1 % (0-1); EOSINOPHILS # (AUTO) 0.16 x10^3/uL (0-0.4); EOSINOPHILS % (AUTO) 2 % (1-7); LYMPHOCYTES # (AUTO) 2.24 x10^3/uL (1-3.4); LYMPHOCYTES % (AUTO) 23 % (22-44); MD NO; MEAN CORPUSCULAR HEMOGLOBIN 29.8 pg (27.0-34.8); MEAN CORPUSCULAR HGB CONC 33.6 g/dL (32.4-35.8); MEAN CORPUSCULAR VOLUME 88.6 fL (80-100); MONOCYTES # (AUTO) 0.39 x10^3/uL (0.2-0.8); MONOCYTES % (AUTO) 4 % (2-9); NEUTROPHILS # (AUTO) 6.67 x10^3/uL (1.8-6.8); NEUTROPHILS % (AUTO) 70 % (42-75); PLATELET COUNT 382 x10^3/uL (130-400); RED BLOOD COUNT 5.29 x10^6/uL (3.82-5.3)
[2017-08-24] MEDS ORDERED: LIDOCAINE 1%, 20ML ONE (10:57)
[2017-08-24] MEDS ORDERED: HYDROcodone/APAP 5/325 TABLET PO ONE (11:30)
[2017-08-24] MEDS ORDERED: ONDANSETRON ODT 4 MG PO ONE (11:30)
[2017-08-24] MEDS ORDERED: HYDROcodone/APAP 5/325 TABLET ONE (11:59)
[2017-08-24] MEDS ORDERED: ONDANSETRON ODT 4 MG ONE (11:59)
[2017-08-24 12:15] VITALS: BP 148/90
== END 2017-08-24 12:18 | disposition home or self-care (01) ==
LOC: ED 10:25
DX: I88.9 Nonspecific lymphadenitis, unspecified (principal); M77.9 Enthesopathy, unspecified; M32.9 Systemic lupus erythematosus, unspecified; M06.9 Rheumatoid arthritis, unspecified; J44.9 Chronic obstructive pulmonary disease, unspecified; I25.10 Atherosclerotic heart disease of native coronary artery without angina pectoris; I50.9 Heart failure, unspecified; I11.0 Hypertensive heart disease with heart failure; Z86.73 Personal history of transient ischemic attack (TIA), and cerebral infarction without residual deficits; Z90.49 Acquired absence of other specified parts of digestive tract
CPT/HCPCS: 36415; 85025; 96372; 99283; J3301; J3490; Q0162

== ENCOUNTER 2017-09-02 12:22 | Observation (INO) | payer SELFPAY ==
[~2017-09-02] VITALS: Ht 157.5 cm; Wt 116.4 kg
[2017-09-02] MEDS ORDERED: SODIUM CHLORIDE FLUSH 10ML SYR IVF ONE (13:30)
[2017-09-02] MEDS ORDERED: HYDROmorphone 2 MG/ML, 1ML ONE ×3 (14:22→18:50)
[2017-09-02] MEDS: HYDROmorphone 1 MG/ML, 1ML IVPush PRN ×2 (14:32→16:35)
[2017-09-02] MEDS ORDERED: ONDANSETRON 2MG/ML, 2ML ONE (14:47)
[2017-09-02] MEDS ORDERED: ONDANSETRON 2MG/ML, 2ML IVPush ONE (15:00)
[2017-09-02] MEDS ORDERED: LORazepam 2 MG/ML, 1ML ONE (15:02)
[2017-09-02 15:06] LABS: BASOPHILS # (AUTO) 0.06 x10^3/uL (0-0.1); BASOPHILS % (AUTO) 1 % (0-1); EOSINOPHILS # (AUTO) 0.15 x10^3/uL (0-0.4); EOSINOPHILS % (AUTO) 1 % (1-7); LYMPHOCYTES # (AUTO) 2.98 x10^3/uL (1-3.4); LYMPHOCYTES % (AUTO) 24 % (22-44); MD NO; MEAN CORPUSCULAR HEMOGLOBIN 29.5 pg (27.0-34.8); MEAN CORPUSCULAR HGB CONC 33.2 g/dL (32.4-35.8); MEAN CORPUSCULAR VOLUME 88.9 fL (80-100); MEAN PLATELET VOLUME 7.4 fL (7.4-10.4); MONOCYTES # (AUTO) 0.53 x10^3/uL (0.2-0.8); MONOCYTES % (AUTO) 4 % (2-9); NEUTROPHILS # (AUTO) 8.64 x10^3/uL (1.8-6.8); NEUTROPHILS % (AUTO) 70 % (42-75); PLATELET COUNT 404 x10^3/uL (130-400); RED BLOOD COUNT 4.69 x10^6/uL (3.82-5.3); RED CELL DISTRIBUTION WIDTH 13.9 % (9.6-15.2)
[2017-09-02 15:17] LABS: ANION GAP 7 mmol/L (5-15); CALCIUM 8.5 mg/dL (8.5-10.1); CHLORIDE 106 mmol/L (98-107)
[2017-09-02] MEDS ORDERED: LORazepam 2 MG/ML, 1ML IVPush ONE (15:30)
[2017-09-02 15:53] LABS: ALANINE AMINOTRANSFERASE 17 U/L (12-78); ALKALINE PHOSPHATASE 126 U/L (45-117); BILIRUBIN,TOTAL 0.4 mg/dL (0.2-1.0); TOTAL PROTEIN 7.1 g/dL (6.4-8.2)
[2017-09-02] MEDS ORDERED: ALBUTEROL/IPRATROPIUM 2.5MG/0.5MG, 3 ML NPPB ONE (17:00)
[2017-09-02] MEDS ORDERED: OXYC-302 PO (17:09)
[2017-09-02] MEDS ORDERED: DIAZ5TAB PO (17:09)
[2017-09-02] MEDS ORDERED: ONDANSETRON 2MG/ML, 2ML IVPush PRN (17:30)
[2017-09-02] MEDS ORDERED: ONDANSETRON ODT 4 MG PO PRN (17:30)
[2017-09-02] MEDS ORDERED: ENOXAPARIN 40 MG/0.4 ML SQ SCH (17:30)
[2017-09-02] MEDS ORDERED: LABETALOL 5MG/ML, 20ML IVPush PRN (17:30)
[2017-09-02] MEDS ORDERED: ACETAMINOPHEN 325 MG TABLET PO PRN (17:30)
[2017-09-02] MEDS ORDERED: ENALAPRILAT 1.25 MG/ML, 2ML IVPush PRN (17:30)
[2017-09-02] MEDS ORDERED: AZITHROMYCIN 500 MG in SODIUM CHLORIDE 0.9% 250 ML IV SCH (18:00)
[2017-09-02] MEDS ORDERED: CEFTRIAXONE PMX 1GM/50ML 50 ML IV SCH (18:00)
[2017-09-02] MEDS ORDERED: ENOXAPARIN 40 MG/0.4 ML ONE (18:03)
[2017-09-02] MEDS ORDERED: methylPREDNISolone SOD SUCC 40 MG/ML ONE (18:03)
[2017-09-02] MEDS ORDERED: CEFTRIAXONE PMX 1GM/50ML 50 ML ONE (18:09)
[2017-09-02] MEDS: methylPREDNISolone SOD SUCC 40 MG/ML IVPush SCH ×2 (18:17→23:25)
[2017-09-02 18:43] LABS: TROPONIN I < 0.015 ng/mL (0.000-0.045)
[2017-09-02 18:43] LABS: HEMOGLOBIN A1C 6.4 % (4.2-6.3)
[2017-09-02 19:28] VITALS: BP 152/79
[2017-09-02] MEDS: OXYcodone/APAP 5/325MG TABLET PO PRN (19:41)
[2017-09-02] MEDS: DIAZEPAM 5 MG TABLET PO PRN (20:49)
[2017-09-03 00:04] VITALS: BP 113/74
[2017-09-03] MEDS: OXYcodone/APAP 5/325MG TABLET PO PRN ×3 (01:40→11:47)
[2017-09-03] MEDS ORDERED: ALBUTEROL/IPRATROPIUM 2.5MG/0.5MG, 3 ML NPPB PRN (03:00)
[2017-09-03 05:26] LABS: ANION GAP 7 mmol/L (5-15); CALCIUM 8.8 mg/dL (8.5-10.1); CHLORIDE 105 mmol/L (98-107); CREATININE 0.63 mg/dL (0.55-1.02)
[2017-09-03 05:35] LABS: THYROID STIMULATING HORMONE 0.371 mIU/L (0.358-3.740)
[2017-09-03 05:49] LABS: BASOPHILS % (AUTO) 0 % (0-1); EOSINOPHILS # (AUTO) 0.01 x10^3/uL (0-0.4); EOSINOPHILS % (AUTO) 0 % (1-7); LYMPHOCYTES # (AUTO) 0.72 x10^3/uL (1-3.4); LYMPHOCYTES % (AUTO) 9 % (22-44); MD NO; MEAN CORPUSCULAR HEMOGLOBIN 30.2 pg (27.0-34.8); MEAN CORPUSCULAR HGB CONC 34.1 g/dL (32.4-35.8); MEAN CORPUSCULAR VOLUME 88.5 fL (80-100); MEAN PLATELET VOLUME 7.8 fL (7.4-10.4); MONOCYTES # (AUTO) 0.04 x10^3/uL (0.2-0.8); MONOCYTES % (AUTO) 1 % (2-9); NEUTROPHILS # (AUTO) 7.44 x10^3/uL (1.8-6.8); NEUTROPHILS % (AUTO) 91 % (42-75); PLATELET COUNT 394 x10^3/uL (130-400); RED BLOOD COUNT 4.46 x10^6/uL (3.82-5.3); RED CELL DISTRIBUTION WIDTH 13.9 % (9.6-15.2)
[2017-09-03] MEDS: methylPREDNISolone SOD SUCC 40 MG/ML IVPush SCH ×2 (05:50→11:47)
[2017-09-03 07:39] VITALS: BP 131/82
[2017-09-03] MEDS ORDERED: FUROSEMIDE 20 MG TABLET PO SCH (09:00)
[2017-09-03] MEDS: DIAZEPAM 5 MG TABLET PO PRN (09:06)
== END 2017-09-03 13:55 | disposition home or self-care (01) ==
LOC: ED 12:52 → EDIP 17:30 → 3NW 19:14
PROVIDERS: ADMIT Internal Medicine Pulmonary Disease; ATTEND Internal Medicine Pulmonary Disease
DX: J44.1 Chronic obstructive pulmonary disease with (acute) exacerbation (principal); I50.9 Heart failure, unspecified; M06.9 Rheumatoid arthritis, unspecified; M19.90 Unspecified osteoarthritis, unspecified site; D72.829 Elevated white blood cell count, unspecified; E66.01 Morbid (severe) obesity due to excess calories; M54.12 Radiculopathy, cervical region; I25.2 Old myocardial infarction; Z82.49 Family history of ischemic heart disease and other diseases of the circulatory system; Z83.3 Family history of diabetes mellitus; Z86.73 Personal history of transient ischemic attack (TIA), and cerebral infarction without residual deficits; Z87.891 Personal history of nicotine dependence; Z72.89 Other problems related to lifestyle
CPT/HCPCS: 36415; 71045; 72141; 72146; 80048; 80053; 83036; 84443; 84484; 85025; 87040; 87070; 87205; 93005; 96365; 96367; 96372; 96375; 96376; 97162; 97530; 99285; G0378; G8978; G8979; G8980; J0456; J0696; J1170; J1650; J2060; J2405; J2920; J7050; J7512

== ENCOUNTER 2017-10-12 12:15 | Emergency (ER) | payer SELFPAY ==
[~2017-10-12] VITALS: Ht 157.5 cm; Wt 110.0 kg
[~2017-10-12 12:15] MED LIST changes: +ACET-1600 PO; +DIAZ5TAB PO; +DIPH25CA61 PO; +OXYC-302 PO
[2017-10-12] MEDS ORDERED: OXYcodone/APAP 10/325MG TABLET PO ONE (13:30)
[2017-10-12] MEDS ORDERED: OXYcodone/APAP 10/325MG TABLET ONE (13:41)
[2017-10-12 13:50] VITALS: BP 136/85
== END 2017-10-12 13:53 | disposition home or self-care (01) ==
LOC: ED 13:45
DX: M75.91 Shoulder lesion, unspecified, right shoulder (principal); G89.29 Other chronic pain; M79.7 Fibromyalgia; J44.9 Chronic obstructive pulmonary disease, unspecified; M10.9 Gout, unspecified; M06.9 Rheumatoid arthritis, unspecified; M32.9 Systemic lupus erythematosus, unspecified; I10 Essential (primary) hypertension; I11.0 Hypertensive heart disease with heart failure; I50.9 Heart failure, unspecified; Z86.73 Personal history of transient ischemic attack (TIA), and cerebral infarction without residual deficits; I25.10 Atherosclerotic heart disease of native coronary artery without angina pectoris; I25.2 Old myocardial infarction; M19.90 Unspecified osteoarthritis, unspecified site; Z90.49 Acquired absence of other specified parts of digestive tract
CPT/HCPCS: 73030; 99284; J7512

== ENCOUNTER 2021-03-20 09:27 | Emergency (ER) | payer MEDICAID ==
[~2021-03-20] VITALS: Ht 157.5 cm; Wt 118.0 kg
[~2021-03-20 09:27] MED LIST changes: -ENAL20TA; -ENAL20TA PO; +ENAL20TA9; +ENAL20TA9 PO; +HYDR-3248 PO; -HYDR-3307 PO; -OXYC-302 PO; -OXYC-307; +OXYC-501; +OXYC1TAB12 PO
--- NOTE | 2021-03-20 10:16 | NUR ---
PT TO ROOM 33 W/ C/O DIZZINESS AND BECK LEFT SIDE X 2 DAYS. PT STATES AT TIMES SHE FEELS LIKE SHE IS LOSING HER BALANCE AND AT TIMES GET NAUSEOUS. PT NOTED TO BE SATING 88-92% RA. PLACED ON 2L NC. STATES HX COPD. PT STATES SHE WAS SEEN AT HOSPITAL IN [place] FOR TBI SECONDARY TO LACK OF O2 AND WAS PLACED IN A COMA X 4 DAYS. PT STATES SHE WAS RELEASED FROM OTHER HOSPITAL 03/06/21. PT RESTING ON GURNEY. NADN. MONITORS APPLIED. VSS. WARM BLANKET PROVIDED. CALL LIGHT IN REACH.
--- NOTE | 2021-03-20 11:01 | NUR ---
PT RESTING ON GURNEY. NADN. PINA.
[2021-03-20 11:02] LABS: BASOPHILS % (AUTO) 1 % (0-1); EOSINOPHILS % (AUTO) 2 % (1-7); LYMPHOCYTES % (AUTO) 29 % (22-44); MEAN CORPUSCULAR HEMOGLOBIN 30.6 pg (27.0-34.8); MEAN PLATELET VOLUME 7.4 fL (7.4-10.4); MONOCYTES % (AUTO) 8 % (2-9); NEUTROPHILS % (AUTO) 60 % (42-75); PLATELET COUNT 336 x10^3/uL (130-400); RED BLOOD COUNT 4.48 x10^6/uL (3.82-5.3); RED CELL DISTRIBUTION WIDTH 15.4 % (9.6-15.2)
[2021-03-20 11:14] LABS: ALBUMIN 3.3 g/dL (3.4-5.0); ANION GAP 7 mmol/L (5-15); CALCIUM 8.7 mg/dL (8.5-10.1); CHLORIDE 102 mmol/L (98-107); CREATININE 0.53 mg/dL (0.55-1.02)
[2021-03-20 11:18] LABS: TROPONIN I < 0.015 ng/mL (0.000-0.045)
[2021-03-20] MEDS ORDERED: SODIUM CHLORIDE FLUSH 10ML SYR IVF ONE (11:30)
[2021-03-20] MEDS ORDERED: SODIUM CHLORIDE 0.9% 1,000ML IVBOLUS ONE (11:30)
--- NOTE | 2021-03-20 12:09 | NUR ---
PT RESTING ON GURNEY. NADN. PINA.
--- NOTE | 2021-03-20 12:43 | NUR ---
PT RESTING ON GURNEY. NADN. PINA.
[2021-03-20] MEDS ORDERED: OMNIPAQUE 350 MG/ML, 75ML BOTTLE ONE (13:37)
[2021-03-20 13:59] VITALS: BP 155/81
--- NOTE | 2021-03-20 13:59 | NUR ---
PT RESTING ON GURNEY. NADN. PINA.
[2021-03-20] MEDS ORDERED: POTASSIUM CHLORIDE 20 MEQ TAB.ER.PRT ONE (14:07)
[2021-03-20] MEDS ORDERED: LORazepam 1MG TABLET ONE (14:07)
[2021-03-20] MEDS ORDERED: ACETAMINOPHEN 500 MG TABLET ONE (14:44)
--- NOTE | 2021-03-20 14:52 | NUR ---
TASK RN: PT REC'VD DISCHARGE EDUCTION AND INSTRUCTIONS. PT HAD NO FURTHER QUESTIONS. PT ADAMENT ABOUT HURRYING UP WITH DISCHARGE INSTRUCTIONS SHE HAD HER RIDE WAITING. PT IN WHEELCHAIR TO DC AREA.
[2021-03-20] MEDS ORDERED: ACETAMINOPHEN 500 MG TABLET PO ONE (15:00)
[2021-03-20] MEDS ORDERED: ACETAMINOPHEN 325 MG TABLET PO ONE (15:00)
[2021-03-20] MEDS ORDERED: POTASSIUM CHLORIDE 20 MEQ TAB.ER.PRT PO ONE (15:00)
[2021-03-20] MEDS ORDERED: LORazepam 1MG TABLET PO ONE (15:00)
== END 2021-03-20 14:55 | disposition home or self-care (01) ==
LOC: ED 12:15
DX: G43.C0 Periodic headache syndromes in child or adult, not intractable (principal); R06.00 Dyspnea, unspecified; R42 Dizziness and giddiness; E87.6 Hypokalemia; F41.1 Generalized anxiety disorder; I11.0 Hypertensive heart disease with heart failure; I50.9 Heart failure, unspecified; J44.9 Chronic obstructive pulmonary disease, unspecified; I25.2 Old myocardial infarction; M06.9 Rheumatoid arthritis, unspecified; I25.10 Atherosclerotic heart disease of native coronary artery without angina pectoris; F17.200 Nicotine dependence, unspecified, uncomplicated; Z86.73 Personal history of transient ischemic attack (TIA), and cerebral infarction without residual deficits; Z86.718 Personal history of other venous thrombosis and embolism; Z90.49 Acquired absence of other specified parts of digestive tract
CPT/HCPCS: 36415; 70450; 71045; 71275; 80048; 82040; 84484; 85025; 85379; 93005; 96360; 99285; J7030; Q9967

== ENCOUNTER 2021-03-23 12:37 | Emergency (ER) | payer MEDICAID ==
[~2021-03-23] VITALS: Ht 157.5 cm; Wt 113.6 kg
[2021-03-23] MEDS ORDERED: LIDOCAINE 1%, 10ML INFIL ONE (20:00)
[2021-03-23] MEDS ORDERED: KETOROLAC 30 MG/1 ML IM ONE (20:00)
[2021-03-23] MEDS ORDERED: BUPIVACAINE 0.25% INFIL ONE (20:00)
[2021-03-23] MEDS ORDERED: OXYcodone/APAP 5/325MG TABLET PO ONE (20:00)
[2021-03-23] MEDS ORDERED: TRIAMCINOLONE ACETONIDE 40 MG/ML, 1ML MC ONE (20:00)
[2021-03-23] MEDS ORDERED: KETOROLAC 30 MG/1 ML ONE (20:07)
[2021-03-23] MEDS ORDERED: BUPIVACAINE 0.25% ONE (20:07)
[2021-03-23] MEDS ORDERED: LIDOCAINE-MPF 1%, 5ML ONE (20:07)
[2021-03-23] MEDS ORDERED: OXYcodone/APAP 5/325MG TABLET ONE (20:08)
[2021-03-23] MEDS ORDERED: PLEASE ENTER HEIGHT AND WEIGHT MC SCH (20:30)
[2021-03-23] MEDS ORDERED: ONDANSETRON ODT 8 MG PO ONE (21:30)
[2021-03-23] MEDS ORDERED: HYDROmorphone/PF 4 MG/ML, 1ML IM ONE (21:30)
[2021-03-23] MEDS ORDERED: ONDANSETRON ODT 8 MG ONE (21:48)
[2021-03-23] MEDS ORDERED: HYDROmorphone 2 MG/ML, 1ML ONE (21:49)
[2021-03-23 22:21] VITALS: BP 133/75
== END 2021-03-23 22:31 | disposition home or self-care (01) ==
LOC: ED 20:17
DX: M17.11 Unilateral primary osteoarthritis, right knee (principal); I25.2 Old myocardial infarction; I11.0 Hypertensive heart disease with heart failure; I50.9 Heart failure, unspecified; Z90.89 Acquired absence of other organs; Z90.49 Acquired absence of other specified parts of digestive tract
CPT/HCPCS: 20610; 73564; 93971; 96372; 99284; J1170; J1885; Q0162

== ENCOUNTER 2021-03-26 20:42 | Emergency (ER) | payer MEDICAID ==
[~2021-03-26] VITALS: Ht 157.5 cm; Wt 113.0 kg
[2021-03-26] MEDS ORDERED: HYDROmorphone 1 MG/ML, 1ML INJ IV ONE (21:30)
[2021-03-26] MEDS ORDERED: SODIUM CHLORIDE 0.9% 1,000ML IVBOLUS ONE (21:30)
[2021-03-26] MEDS ORDERED: ONDANSETRON 2MG/ML, 2ML IVPush ONE (21:30)
[2021-03-26] MEDS ORDERED: SODIUM CHLORIDE FLUSH 10ML SYR IVF ONE (21:30)
[2021-03-26] MEDS ORDERED: ONDANSETRON 2MG/ML, 2ML ONE (21:36)
[2021-03-26] MEDS ORDERED: HYDROmorphone 2 MG/ML, 1ML ONE (21:36)
[2021-03-26 22:21] LABS: BASOPHILS % (AUTO) 1 % (0-1); EOSINOPHILS % (AUTO) 1 % (1-7); LYMPHOCYTES % (AUTO) 21 % (22-44); MEAN CORPUSCULAR HGB CONC 32.6 g/dL (32.4-35.8); MEAN PLATELET VOLUME 7.6 fL (7.4-10.4); MONOCYTES % (AUTO) 8 % (2-9); NEUTROPHILS % (AUTO) 70 % (42-75); PLATELET COUNT 409 x10^3/uL (130-400); RED BLOOD COUNT 4.41 x10^6/uL (3.82-5.3)
[2021-03-26 22:53] LABS: ALBUMIN 3.3 g/dL (3.4-5.0)
[2021-03-26 22:59] LABS: ALKALINE PHOSPHATASE 123 U/L (45-117); ANION GAP 7 mmol/L (5-15); CHLORIDE 105 mmol/L (98-107); CREATININE 0.68 mg/dL (0.55-1.02); TOTAL PROTEIN 6.7 g/dL (6.4-8.2); TROPONIN I < 0.015 ng/mL (0.000-0.045)
[2021-03-26 23:18] LABS: ALANINE AMINOTRANSFERASE 21 U/L (12-78); BILIRUBIN,TOTAL 0.3 mg/dL (0.2-1.0)
[2021-03-27] MEDS ORDERED: HYDROcodone/APAP 5/325 TABLET PO ONE (00:30)
[2021-03-27] MEDS ORDERED: HYDROcodone/APAP 5/325 TABLET ONE (00:36)
[2021-03-27 00:41] LABS: MICROSCOPIC INDICATED
[2021-03-27 01:18] VITALS: BP 105/72
== END 2021-03-27 01:46 | disposition home or self-care (01) ==
LOC: ED 21:28
DX: S80.12XA Contusion of left lower leg, initial encounter (principal); N39.0 Urinary tract infection, site not specified; R42 Dizziness and giddiness; R55 Syncope and collapse; R51.9 Headache, unspecified; Z79.01 Long term (current) use of anticoagulants; F17.210 Nicotine dependence, cigarettes, uncomplicated; X58.XXXA Exposure to other specified factors, initial encounter; Y93.89 Activity, other specified; Y92.89 Other specified places as the place of occurrence of the external cause; Y99.8 Other external cause status
CPT/HCPCS: 36415; 70450; 71045; 73564; 73590; 80053; 81001; 84484; 85025; 87086; 93005; 96361; 96374; 96375; 99285; 99406; J1170; J2405; J7030

== ENCOUNTER 2021-04-01 22:00 | Emergency (ER) | payer MEDICAID ==
[~2021-04-01] VITALS: Ht 157.5 cm; Wt 120.0 kg
--- NOTE | 2021-04-01 22:11 | NUR ---
PT ALERT AND ORIENTED X4, SITTING ON GURNEY, IN NO ACUTE DISTRESS. ABLE TO STAND AND TRANSFER FROM EMS STRETCHER TO ED STRETCHER. PT BROUGHT IN BY EMS C/O LOWER LEFT LEG DISCOLORATION, REDNESS, POSSIBLE LUCINDA;LULITIS, HX OF SAME, WARM, PAINFUL TO TOUCH. PT HAD GROUND LEVEL FALL ON THRUSDAY, PRESENTED TO ED, HAD XRAYS DONE. NO FX WAS NOTED AT THAT TIME. PT HAS DIFFUSE ECCHYMOSIS FROM KNEE DOWN TO FOOT. BGL 235 W/ EMS- PT HAS NEVER BEEN DX W/DM.
[2021-04-01] MEDS ORDERED: KETOROLAC 30 MG/1 ML ONE (22:28)
[2021-04-01] MEDS ORDERED: KETOROLAC 30 MG/1 ML IM ONE (22:30)
--- NOTE | 2021-04-01 22:31 | NUR ---
US AT BEDSIDE
[2021-04-01 22:54] LABS: BASOPHILS % (AUTO) 1 % (0-1); EOSINOPHILS % (AUTO) 1 % (1-7); LYMPHOCYTES % (AUTO) 23 % (22-44); MEAN CORPUSCULAR HEMOGLOBIN 30.3 pg (27.0-34.8); MEAN PLATELET VOLUME 7.7 fL (7.4-10.4); MONOCYTES % (AUTO) 5 % (2-9); NEUTROPHILS % (AUTO) 70 % (42-75); PLATELET COUNT 372 x10^3/uL (130-400)
[2021-04-01 23:00] LABS: ALBUMIN 3.1 g/dL (3.4-5.0); ANION GAP 6 mmol/L (5-15); CALCIUM 8.6 mg/dL (8.5-10.1); CHLORIDE 103 mmol/L (98-107)
[2021-04-01 23:01] LABS: CREATININE 0.92 mg/dL (0.55-1.02)
[2021-04-01 23:30] VITALS: BP 131/74
[2021-04-01] MEDS ORDERED: ACETAMINOPHEN 500 MG TABLET PO ONE (23:30)
--- NOTE | 2021-04-01 23:36 | NUR ---
PT STATES TYLENOL DOES NOTHING FOR HER. UPDATED PA EMERALD. PT REQUESTING SOMETHING DIFFERENT/STRONGER TO MANAGE HER PAIN. CITING TORADOL DID NOT HELP.
--- NOTE | 2021-04-02 00:08 | NUR ---
PT AWAITING DISPOSITION.
[2021-04-02] MEDS ORDERED: MORPHINE SULFATE 4 MG/ML, 1ML IVPush ONE (00:30)
[2021-04-02] MEDS ORDERED: ONDANSETRON 2MG/ML, 2ML IVPush ONE (00:30)
[2021-04-02] MEDS ORDERED: ONDANSETRON 2MG/ML, 2ML ONE (00:37)
[2021-04-02] MEDS ORDERED: MORPHINE SULFATE 4 MG/ML, 1ML ONE (00:37)
--- NOTE | 2021-04-02 01:14 | NUR ---
Patient/Caregiver given discharge instructions and they have confirmed that they understand the instructions. Patient ambulatory with steady gait. NAD, all questions answered appropriately, denies additional needs at this time. No personal belongings left in room after discharge. PT DISCHARGED OUT TO LOBBY VIA WHEELCHAIR TO AAWAIT RIDE FROM FRIEND.
== END 2021-04-02 01:16 | disposition home or self-care (01) ==
LOC: ED 22:10
DX: S70.12XA Contusion of left thigh, initial encounter (principal); S80.12XA Contusion of left lower leg, initial encounter; J44.9 Chronic obstructive pulmonary disease, unspecified; M19.90 Unspecified osteoarthritis, unspecified site; I11.0 Hypertensive heart disease with heart failure; I50.9 Heart failure, unspecified; I25.2 Old myocardial infarction; I25.10 Atherosclerotic heart disease of native coronary artery without angina pectoris; M10.9 Gout, unspecified; F17.210 Nicotine dependence, cigarettes, uncomplicated; Z90.89 Acquired absence of other organs; Z90.49 Acquired absence of other specified parts of digestive tract; Z86.73 Personal history of transient ischemic attack (TIA), and cerebral infarction without residual deficits; W01.0XXA Fall on same level from slipping, tripping and stumbling without subsequent striking against object, initial encounter; Y93.89 Activity, other specified; Y92.89 Other specified places as the place of occurrence of the external cause; Y99.8 Other external cause status
CPT/HCPCS: 36415; 80048; 82040; 84145; 85025; 93971; 96372; 96374; 96375; 99284; 99406; J1885; J2270; J2405